=== PATIENT | female | born 1985 | race Caucasian/White ===

== ENCOUNTER 2021-12-05 22:17 | Emergency (ER) | payer OTHER ==
[~2021-12-05] VITALS: Ht 154.9 cm; Wt 60.0 kg
[2021-12-05] MEDS ORDERED: CEPH-558 PO (22:33)
[2021-12-05] MEDS ORDERED: HYDR-4723 PO (22:33)
[2021-12-05 22:40] VITALS: BP 120/70
== END 2021-12-05 23:03 | disposition home or self-care (01) ==
LOC: EMS 22:24
DX: H66.92 Otitis media, unspecified, left ear (principal)
CPT/HCPCS: 99283; Z7502

== ENCOUNTER 2022-06-25 15:58 | Emergency (ER) | payer OTHER ==
[~2022-06-25] VITALS: Ht 154.9 cm; Wt 79.5 kg
[~2022-06-25 15:58] MED LIST: CEPH-558 PO; HYDR-4723 PO
[2022-06-25] MEDS ORDERED: ACETAMINOPHEN 500 MG TABLET PO ONE (16:30)
[2022-06-25] MEDS ORDERED: SODIUM CHLORIDE 0.9% 1,000 ML IV ONE (16:30)
[2022-06-25 16:39] LABS: COVID AG,FIA SOURCE NASOPHARYNGEAL
[2022-06-25 16:40] LABS: EOSINOPHILS % (AUTO) 4.2 % (1.0-6.0); HEMATOCRIT 38.2 % (36-46); HEMOGLOBIN 12.4 g/dL (12.0-16.0); LYMPHOCYTES # (AUTO) 2.4 K/uL (1.0-4.8); MEAN CORPUSCULAR HEMOGLOBIN 28.8 pg (26.0-34.0); MEAN CORPUSCULAR HGB CONC 32.5 G/dL (31.0-37.0); MEAN CORPUSCULAR VOLUME 89 fL (80-100); MONOCYTES # (AUTO) 0.6 K/uL (0.1-1.0); MONOCYTES % (AUTO) 7.8 % (2.0-9.0); NEUTROPHILS # (AUTO) 3.7 K/uL (1.8-7.7); PLATELET COUNT (AUTO) 348 K/uL (150-450); RED BLOOD CELL COUNT(AUTO) 4.31 MIL/uL (4.00-5.20); RED CELL DISTRIBUTION WIDTH 13.8 % (11.5-14.5)
[2022-06-25 16:51] LABS: ANION GAP 6 mmol/L (8-16); CALCIUM, TOTAL 8.4 mg/dL (8.8-10.5); CARBON DIOXIDE 29 mmol/L (22-29); CHLORIDE 104 mmol/L (98-107); CREATININE 0.61 mg/dL (0.60-1.30); GLOMERULAR FILTR. RATE CALC > 60 mL/min (>60); GLUCOSE,RANDOM 99 mg/dL (70-110); POTASSIUM 3.8 mmol/L (3.5-5.1); SODIUM SERUM 139 mmol/L (136-145); UREA NITROGEN, BLOOD 11 mg/dL (7-18)
[2022-06-25 17:04] LABS: INFLUENZA TYPE A NEGATIVE FOR TYPE A (NEGATIVE); INFLUENZA TYPE B NEGATIVE FOR TYPE B (NEGATIVE)
[2022-06-25 17:05] LABS: HCG,QUANTITATIVE < 1 mIU/mL (0-6)
[2022-06-25] MEDS ORDERED: ACET-3385 PO (17:57)
[2022-06-25 18:17] VITALS: BP 110/63
== END 2022-06-25 18:59 | disposition home or self-care (01) ==
LOC: EMS 16:29
DX: R51.9 Headache, unspecified (principal); M54.89 Other dorsalgia; Z88.8 Allergy status to other drugs, medicaments and biological substances; Z88.6 Allergy status to analgesic agent; Z20.822 Contact with and (suspected) exposure to COVID-19
CPT/HCPCS: 99283; 96360; 87426; 80048; 84702; 85025; 87804; 36415; J7030

== ENCOUNTER 2022-08-22 18:06 | Emergency (ER) | payer OTHER ==
[~2022-08-22] VITALS: Ht 154.9 cm; Wt 83.6 kg
[~2022-08-22 18:06] MED LIST changes: +ACET-3385 PO; -CEPH-558 PO; -HYDR-4723 PO
[2022-08-22 18:24] VITALS: BP 114/50
[2022-08-22 18:27] LABS: COVID AG,FIA SOURCE NASAL SWAB
[2022-08-22 18:50] LABS: INFLUENZA TYPE A NEGATIVE FOR TYPE A (NEGATIVE); INFLUENZA TYPE B NEGATIVE FOR TYPE B (NEGATIVE)
[2022-08-22] MEDS ORDERED: ACET-66 PO (19:18)
[2022-08-22] MEDS ORDERED: GUAIFDM PO (19:18)
== END 2022-08-22 19:31 | disposition home or self-care (01) ==
LOC: EMS 18:06
DX: J06.9 Acute upper respiratory infection, unspecified (principal); J02.8 Acute pharyngitis due to other specified organisms; Z20.822 Contact with and (suspected) exposure to COVID-19; Z88.5 Allergy status to narcotic agent; Z88.6 Allergy status to analgesic agent; Z88.8 Allergy status to other drugs, medicaments and biological substances
CPT/HCPCS: 87804; 99283